=== PATIENT | female | born 1980 | race Caucasian/White ===

== ENCOUNTER 2024-09-06 01:09 | Emergency (ER) | payer BC, SELFPAY ==
[2024-09-06 01:11] VITALS: BP 136/86
--- NOTE | 2024-09-06 01:19 | ED.GENMED ---
History of Present Illness
<Suzy Borrego PA-C - Last Filed: 09/06/24 04:11>
General
Chief Complaint: Abdominal Symptoms
Source: patient
Exam Limitations: none
Time Seen by Provider: 09/06/24 01:18
History of Present Illness
History of Present Illness:
This is a 44-year-old female with past medical history of anemia, PCOS, who presents emergency department today with concerns of nausea and vomiting for the past since yesterday morning. Patient reports that she was taking a break from wegovy for a
few months and saw her pcp to restart it. She states that with her PCP, the Wegovy was not covered so she went to an outside online site and had a televisit to get the wegovy restarted. Patient states that she was previously on the highest dose and
states that they restarted her at the dose just below the dose she was previously on at 2.0 rather than starting her at the lowest. Patient states that after the injection, she started to develop belching and later in the evening, developed
vomiting. Patient reports that since then, she has had persistent nausea vomiting is gotten more severe and currently she cannot tolerate intake of anything by mouth, including fluids. Patient denies any abdominal pain. Patient did start to have
episodes of diarrhea today with this as well. She denies any fevers or chills. She denies any chest pain shortness of breath. Other than gallbladder removal in the past, and C-sections, she has not had any other intra-abdominal/pelvic surgeries.
She denies any flank pain. She denies any dysuria. She states that she compares this to when she had hyperemesis gravidarum during her in the past. Patient states that she also has a sensation of intermittent palpitations as well but
denies any dizziness or lightheadedness, denies any syncopal episodes. Patient denies any sick contacts, denies being in contact with anyone with similar symptoms. She denies any recent antibiotics.
Past History
<Suzy Borrego PA-C - Last Filed: 09/06/24 04:11>
Past History
ED Past Medical History: Other (Fibromyalgia. Infected synovial fluid left knee during in 2006. )
ED Past Surgical History:
Social History
Tobacco: Non-smoker
Personal:
Living: with family
Family History
Family History: Other (No significant)
Review of Systems
<Suzy Borrego PA-C - Last Filed: 09/06/24 04:11>
Review of Systems
All Other Systems: ROS reviewed and negative except as documented in HPI and ROS
Phy Exam
<NILDA Larkin Last Filed: 09/06/24 04:11>
Physical Exam
Physical Exam:
General: Patient is well appearing and in no acute distress; non-toxic
Skin: Warm and dry, no rashes or lesions
Head: Normocephalic, atraumatic
Eyes: Sclera non-icteric. EOMs intact.
Cardiac: Regular rate and rhythm, no murmurs
Peripheral Vascular: No lower extremity swelling or edema
Pulm: Normal respiratory effort, no wheezes, rales, rhonchi
Abdomen: No abdominal distention noted, no tenderness to palpation, normoactive bowel sounds
Neuro: CN II-XII intact, no focal neurologic deficits.
Psychiatric: Appropriate mood and affect.
Course
<NILDA Larkin Last Filed: 09/06/24 04:11>
Orders/Labs/Results
Orders:
Orders
09/06/24 01:23
0.9% Sodium Chloride 1000 ml [Nss] 1,000 ml IV BOLUS
Ondansetron Injectable [Zofran] 4 mg IV NOW STA
09/06/24 01:28
Complete Blood Count/With Diff Urgent
Comprehensive Metabolic Panel Urgent
HCG, Serum Qualitative Screen Urgent
Lipase Urgent
Magnesium Urgent
09/06/24 01:32
Test Result ONCE
09/06/24 01:41
Norovirus by PCR Urgent
[facility] Source: Feces/Stool
Specimen Description:
Stool Culture Urgent
[facility] Source: Feces/Stool
Specimen Description:
09/06/24 02:42
0.9% Sodium Chloride 1000 ml [Nss] 1,000 ml IV BOLUS
Ondansetron Injectable [Zofran] 4 mg IV NOW STA
Abnormal Lab Results
09/06/24
01:28
WBC 13.0 H 10^3/uL
(4.8-10.8)
MCV 77.8 L fL
(81.0-99.0)
MCH 26.0 L pg
(27.0-31.0)
Abs Immat Gran (auto) 0.1 H 10^3/uL
(0-0.05)
Absolute Neuts (auto) 10.8 H 10^3/uL
(1.4-6.5)
Absolute Monos (auto) 0.7 H 10^3/uL
(0.1-0.6)
Neutrophils % 83.2 H %
(42.2-75.2)
Lymphocytes % 9.5 L %
(20.5-51.1)
BUN 27 H mg/dl
(7-17)
Glucose 117 H mg/dl
(70-99)
AST 41 H U/L
(14-36)
ALT 77 H U/L
(0-35)
09/06/24 01:28
09/06/24 01:28
Vital Signs
Initial and Last Documented VS:
Initial Vital Signs
Temp Pulse Resp BP Pulse Ox
98.4 F 98 18 136/86 97
09/06/24 01:11 09/06/24 01:11 09/06/24 01:11 09/06/24 01:11 09/06/24 01:11
Last Documented Vital Signs
Temp Pulse Resp BP Pulse Ox
98.4 F 89 17 128/79 98
09/06/24 01:11 09/06/24 02:33 09/06/24 02:33 09/06/24 02:33 09/06/24 02:33
<Pretty Werner, DO - Last Filed: 09/06/24 02:49>
Orders/Labs/Results
Orders:
Orders
09/06/24 01:23
0.9% Sodium Chloride 1000 ml [Nss] 1,000 ml IV BOLUS
Ondansetron Injectable [Zofran] 4 mg IV NOW STA
09/06/24 01:28
Complete Blood Count/With Diff Urgent
Comprehensive Metabolic Panel Urgent
HCG, Serum Qualitative Screen Urgent
Lipase Urgent
Magnesium Urgent
09/06/24 01:32
Test Result ONCE
09/06/24 01:41
Norovirus by PCR Urgent
[facility] Source: Feces/Stool
Specimen Description:
Stool Culture Urgent
[facility] Source: Feces/Stool
Specimen Description:
09/06/24 02:42
0.9% Sodium Chloride 1000 ml [Nss] 1,000 ml IV BOLUS
Ondansetron Injectable [Zofran] 4 mg IV NOW STA
Abnormal Lab Results
09/06/24
01:28
WBC 13.0 H 10^3/uL
(4.8-10.8)
MCV 77.8 L fL
(81.0-99.0)
MCH 26.0 L pg
(27.0-31.0)
Abs Immat Gran (auto) 0.1 H 10^3/uL
(0-0.05)
Absolute Neuts (auto) 10.8 H 10^3/uL
(1.4-6.5)
Absolute Monos (auto) 0.7 H 10^3/uL
(0.1-0.6)
Neutrophils % 83.2 H %
(42.2-75.2)
Lymphocytes % 9.5 L %
(20.5-51.1)
BUN 27 H mg/dl
(7-17)
Glucose 117 H mg/dl
(70-99)
AST 41 H U/L
(14-36)
ALT 77 H U/L
(0-35)
09/06/24 01:28
09/06/24 01:28
Vital Signs
Initial and Last Documented VS:
Initial Vital Signs
Temp Pulse Resp BP Pulse Ox
98.4 F 98 18 136/86 97
09/06/24 01:11 09/06/24 01:11 09/06/24 01:11 09/06/24 01:11 09/06/24 01:11
Last Documented Vital Signs
Temp Pulse Resp BP Pulse Ox
98.4 F 89 17 128/79 98
09/06/24 01:11 09/06/24 02:33 09/06/24 02:33 09/06/24 02:33 09/06/24 02:33
<Suzy Borrego PA-C - Last Filed: 09/06/24 04:11>
MDM/Problems Addressed
Differential Diagnosis Includes:
ddx include wegovy side affect/dosing error, gastroenteritis, colitis, pancreatitis
MDM/Problems Addressed:
This is a 44-year-old female with past medical history of anemia, PCOS, who presents emergency department today with concerns of nausea and vomiting for the past since yesterday morning. Patient reports that she was taking a break from wegovy for a
few months and saw her pcp to restart it. When she restarted, it was restarted at a higher dose. This likely explained patient's symptoms. Patient was treated with 2 packs of IV fluids as well as 2 doses of Zofran significant improvement in her
symptoms. CMP is significant for increased BUN/creatinine ratio otherwise blood work unremarkable, WBC count likely reactive from vomiting. Zofran prescription sent to patient's pharmacy. Patient stable for discharge.
Chronic conditions affecting care:
anemia
<Suzy Borrego PA-C - Last Filed: 09/06/24 04:11>
*Pulse Oximetry
Patient hypoxic: no
*Critical Care Note
Total Time (30-74mins, 75-104mins- exclusive of procedures): Not Applicable
Data Reviewed
Review of Other/Old Records Reveals: Records (Reviewed ER physician augmentation from 04/05/2023, patient seen for ovarian cyst, had been discharged, no discharge summaries in [facility] to review)
Source: patient and records
<Suzy Borrego PA-C - Last Filed: 09/06/24 04:11>
Update Note
Update Note:
Update 3:30 AM�patient reports much improvement in her symptoms after and with complete second bag of fluids and after second dose of Zofran. Patient able to tolerate sips of water without any symptoms, will trial oral challenge with crackers prior
to discharge
ED Attending Note
<Suzy Borrego PA-C - Last Filed: 09/06/24 04:11>
-
Portions of this chart may have been created with voice recognition software.� Occasional wrong word or��sound alike� substitutions may have occurred due to the inherent limitations of voice recognition software.
<Pretty Werner DO - Last Filed: 09/06/24 02:49>
ED Attending Note
Patient seen and examined by attending physician: Yes
I performed a history and physical exam of patient and discussed management with resident, I reviewed resident's note and agree with documented findings and plan of care.: Yes
ED Attending Note:
44-year-old woman who presents with persistent nausea, vomiting that began 2 days ago shortly after initial injection of Wegovy 2 mg. She had been on Wegovy in the past and had done quite well with weight loss and thus discontinued Wegovy in
May. With mild weight gain over the past 3 months, she decided to resume Wegovy and unfortunately resumed at her previous/highest dose of 2 mg.
She has noticed scant loose stools today but no hematochezia nor hematemesis. She denies abdominal pain, no fever no chills. No close contacts with similar symptoms.
Currently feeling markedly improved after 1 L of IV fluids and an IV dose of Zofran. She has attempted oral fluids with mild return of nausea but no return of vomiting. She continues to deny abdominal pain.
She has had no diarrhea since arrival to the ED.
44-year-old appears her stated age.
Oral mucosa is moist.
Abdomen is soft without appreciable tenderness. Normal active bowel sounds.
Labs reveal mildly elevated white blood cell count of 13. Normal H&H. Mild to moderate elevation of BUN at 27 with normal creatinine 0.7. Normal electrolytes.
Very minimally elevated LFTs with normal bilirubin, normal alkaline phosphatase, normal lipase. hCG is negative.
Highly suspect nausea and vomiting is adverse medication reaction related to Wegovy. Other consideration is viral versus foodborne gastroenteritis. As patient has had no accompanying abdominal pain, bowel obstruction, common bile duct stone,
gastritis, colitis, pancreatitis are unlikely.
Will continue IV fluids and give an additional dose of IV Zofran.
As abdomen remains soft without appreciable tenderness, at this point no indication for imaging.
Plan is for discharge to home with prescription for Zofran ODT.
Overall symptoms should improve within the next 2 to 4 days. Going forward, if patient elects to continue Wegovy, I recommend she restart at the lowest/starting dose of 0.25 mg weekly and continue that dose for 4 weeks, then titrate to 0.5 mg
weekly for an additional 4 weeks, etc.
Discharge Plan
Departure
Patient Disposition: Home (Routine Discharge)
Date of Disposition: 09/06/24
Time of Disposition: 03:57
Patient with high blood pressure during this ER visit?: Yes
Condition: Good
Discharge Problem:
Nausea & vomiting
Instructions: Nausea and Vomiting, Adult (DC), Semaglutide, BLOOD PRESSURE
Prescriptions:
New
ondansetron 4 mg tablet,disintegrating
4 mg PO Q4H PRN (Reason: nausea) Qty: 20 0RF
No Action
clonazepam 1 mg Tablet
1 mg PO HS
Patient Comments:
04/05/23 filled on 03/11/23 #90
acetaminophen [Tylenol Extra Strength] 500 mg Tablet
500 mg PO Q6HPRN PRN (Reason: mild pain)
cyanocobalamin (vitamin B-12) 500 mcg Tablet
500 mcg PO DAILY
ascorbic acid (vitamin C) [Vitamin C] 250 mg Tablet
250 mg PO DAILY
hydrochlorothiazide 25 mg Tablet
25 mg PO DAILYPRN PRN (Reason: fluid retention)
fluticasone furoate-vilanterol [Breo Ellipta] 100-25 mcg/dose Blister With Device
1 inh INHALATION R DAILYPRN PRN (Reason: sob)
albuterol sulfate 90 mcg/actuation Aerosol Powdr Breath Activated
1 inh INHALATION Q6HPRN PRN (Reason: sob)
Ozempic 2 mg/dose (8 mg/3 mL) Pen Injector
2 mg SC DIXON
norethindrone acetate 5 mg tablet
10 mg PO DAILY Qty: 5 0RF
Referrals:
UNKNOWN - PT DOES,NOT KNOW [Family Provider] -
Activity Restrictions/Additional Instructions:
Zofran has been sent to your pharmacy. You can take 1 tablet under the tongue every 4 hours as needed for nausea and vomiting. Please continue monitor your symptoms. Please stick to a bland diet as you introduce food back. Please take small sips
of water over a period of time to stay hydrated.
Your CMP showed signs of dehydration. Please follow-up with your primary care provider in 1 week to ensure the resolution of your symptoms.
PLEASE RETURN EMERGENCY DEPARTMENT SHOULD YOU DEVELOP ANY ACUTE WORSENING OF YOUR SYMPTOMS, INTRACTABLE NAUSEA OR VOMITING, FEVERS OR CHILLS, ABDOMINAL PAIN, DARK TARRY STOOLS, RECTAL BLEEDING, CHEST PAIN, SHORTNESS OF BREATH, OR ANY OTHER SIGNS OR
SYMPTOMS WORRISOME TO YOU.
Interventions
Interventions:
*Risk Screen - Suicide Last Done: 09/06/24 01:16
[facility] Assessment Last Done: 09/06/24 02:33
Discharge Date and Time
Print Language: TRISTANIAN
[2024-09-06] MEDS: ZOFRAN 4 MG IV ×2 (01:29→02:46)
[2024-09-06] MEDS: NSS 1000 IV ×2 (01:30→02:48)
[2024-09-06 01:49] LABS: % Basophils 0.3 % (0-2); % Eosinophils 1.5 % (0-6); % Immature Granulocytes 0.4 % (0-0.5); % Lymphocytes 9.5 % (20.5-51.1); % Monocytes 5.1 % (1.7-9.3); % Neutrophils 83.2 % (42.2-75.2); Absolute Eosinophils 0.2 10^3/uL (0-0.7); Absolute Immature Granulocytes 0.1 10^3/uL (0-0.05); Absolute Lymphocytes 1.2 10^3/uL (1.2-3.4); Absolute Monocytes 0.7 10^3/uL (0.1-0.6); Absolute Neutrophils 10.8 10^3/uL (1.4-6.5); Hematocrit 38.9 % (37.0-47.0); Mean Corp Hgb Conc. 33.4 g/dL (33.0-37.0); Mean Corpuscular Volume 77.8 fL (81.0-99.0); Mean Platelet Volume 9.9 fL (7.4-10.4); Nucleated Red Blood Cells % 0 %; Platelet Count 265 10^3/uL (130-400); Red Cell Dist. Width 14.2 % (11.5-14.5)
[2024-09-06 01:51] LABS: HCG, Serum Qualitative Screen Negative
[2024-09-06 01:56] LABS: ALT (SGPT) 77 U/L (0-35); AST (SGOT) 41 U/L (14-36); Albumin 4.5 g/dl (3.5-5.0); Alkaline Phosphatase 53 U/L (38-126); Blood Urea Nitrogen 27 mg/dl (7-17); Calcium 9.6 mg/dl (8.4-10.2); Carbon Dioxide 23 mmol/L (22-30); Chloride 105 mmol/L (98-107); Glucose 117 mg/dl (70-99); Lipase 135 U/L (23-300); Magnesium 1.9 mg/dl (1.6-2.3); Sodium 138 mmol/L (135-145); Total Bilirubin 1.2 mg/dl (0.2-1.3); Total Protein 7.8 g/dl (6.3-8.2); eGFR > 60.00
[2024-09-06 02:33] VITALS: BP 128/79
[2024-09-06 04:16] VITALS: BP 109/66
== END 2024-09-06 04:24 | disposition home or self-care (01) ==
LOC: EMR 01:09
PROVIDERS: Physician Assistant; EMERGENCY PHYSICIAN Emergency Medicine
DX: R11.2 Nausea with vomiting, unspecified (principal); D64.9 Anemia, unspecified
CPT/HCPCS: 99284; 96374; 96361 ×2; 96376; 80053; 83690; 83735; 84703; 85025